=== PATIENT | female | born 1985 | race Two or more races ===

== ENCOUNTER 2024-09-04 11:54 | Emergency (ER) | payer MEDICAID, SELFPAY ==
[2024-09-04 11:55] VITALS: BMI 30.2
[2024-09-04 11:59] VITALS: BP 131/85; PULSE 64; RESP 17; TEMP 36.8; O2SAT 99
[2024-09-04] MEDS: KETOROLAC INJ 30 MG/ML VIAL IM (12:12)
[2024-09-04] MEDS: ONDANSETRON ODT 4 MG TABRAP PO (12:12)
[2024-09-04 12:36] LABS: Basophils % (Auto) 0 % (0-2.5); Eosinophils % (Auto) 0 % (0-10); Hemoglobin 10.3 g/dL (12.0-16.0); Immature Granulocytes % (Auto) 0 % (0-0); Immature Granulocytes Auto 0.05 Thou/mm3 (0.00-0.00); Lymphocytes # (Auto) 1.9 Thou/mm3 (1.0-4.8); Lymphocytes % (Auto) 15 % (10-50); Mean Corpuscular HGB Conc 33.2 g/dl (31.0-37.0); Mean Corpuscular Hemoglobin 27.6 pg (25.0-35.0); Mean Corpuscular Volume 83 fL (80-100); Monocytes # (Auto) 0.8 Thou/mm3 (0.0-0.8); Monocytes % (Auto) 6 % (0-12); Neutrophils # (Auto) 9.7 Thou/mm3 (1.8-7.7); Neutrophils % (Auto) 78 % (37-80); Nucleated Red Blood Cell % 0 /100 WBC (0); Platelet Count 256 Thou/mm3 (140-440); RDW Standard Deviation 47.5 fL (36.4-46.3); Red Blood Count 3.73 Miln/mm3 (4.00-5.20); White Blood Count 12.5 Thou/mm3 (3.6-11.0)
[2024-09-04 12:54] LABS: Collection Type, Urine Clean Catch
[2024-09-04 13:03] LABS: Alanine Aminotransferase 8 U/L (10-49); Albumin, Serum 3.9 gm/dL (3.5-5.0); Albumin/Globulin Ratio 1.6 (1.2-2.2); Alkaline Phosphatase 78 U/L (46-116); Anion Gap 10 (7-16); Aspartate Amino Transferase 13 U/L (0-34); BUN/Creatinine Ratio 11 Ratio (12-20); Bilirubin,Total 0.5 mg/dL (0.3-1.2); Blood Urea Nitrogen 12 mg/dL (9-23); Calcium 8.5 mg/dL (8.3-10.6); Calcium (Corrected) 8.6 mg/dL (8.5-10.1); Carbon Dioxide 21.3 mMol/L (20.0-31.0); Chloride 111 mMol/L (98-107); Creatinine (Component) 1.1 mg/dL (0.6-1.3); Estimated Creatinine Clearance 61.3 mL/min (>60); Globulin 2.5 gm/dL (2.3-3.5); Glucose 100 mg/dL (74-106); Lipase 41 U/L (12-53); Osmolality,Calculated 282 (275-295); Potassium 3.9 mMol/L (3.4-5.1); Sodium 142 mMol/L (136-145); Total Protein 6.4 gm/dL (5.7-8.2); eGFR > 60 See Note
[2024-09-04 13:05] LABS: Bilirubin,Urine Negative (Negative); Blood,Urine 1+ (Negative); Budding Yeast,Urine Present; Color,Urine Lt-Yellow (Lt Yel-Yel); Glucose, Urine Negative (Negative); Ketones,Urine Negative (Negative); Leukocyte Esterase,Urine Positive (Negative); Nitrite,Urine Negative (Negative); PH,Urine 6.5 (5.0-7.0); Protein,Urine Trace (Neg - Trace); RBC,Urine 8 /hpf (0-3); Specific Gravity,Urine 1.017 (1.001-1.035); Squamous Epithelial Cell,Urine 1 /hpf (0-5); Urobilinogen,Urine Negative mg/dL (0.0-1.0); WBC,Urine 85 /hpf (0-5)
[2024-09-04 13:07] LABS: HCG Qualitative,Urine Negative
[2024-09-04 13:14] LABS: Clarity,Urine Hazy (Clear/Hazy); Culture Indicated,Urine Yes
[2024-09-04 14:36] VITALS: BP 148/85; PULSE 73; RESP 18; TEMP 36.6; O2SAT 100
--- NOTE | 2024-09-04 14:50 | EDNOTE_ITS ---
ED Abdominal Pain RME/HPI General Chief Complaint: Abdominal Pain Stated complaint: C/O FLANK/LOWER ABD PAIN; HX OF KIDNEY STONES Time seen by provider: 09/04/24 12:06 Arrival date/time: 09/04/24 11:54 39-year-old female presents to the emergency department day for complaints of lower abdominal pain and flank pain patient for symptoms ongoing since this morning. Patient reports no fever nausea or vomiting Limitations: no limitations Related Data Previous Rx's ?Medication ?Instructions ?Recorded diazepam 10 mg tablet (Valium) 10 mg PO BID PRN muscle spasm #14 09/19/20 tabs naproxen 500 mg tablet (Naprosyn) 500 mg PO BID PRN pa in #30 tabs 09/19/20 albuterol sulfate 90 mcg/actuation 2 puff inhalation Q 6H PRN 03/22/23 aerosol inhaler (Ventolin HFA) shortness of breath or wheezing #8.5 grams benzonatate 100 mg capsule 100 mg PO TID #14 caps 04/14 ciprofloxacin HCl 500 mg tablet 500 mg PO BID #14 tabs 06/13/23 (Cipro) meloxicam 7.5 mg tablet 7.5 mg PO QDAY #14 tabs 05/21 07/13 ciprofloxacin HCl 500 mg tablet 500 mg PO BID 7 days # 14 tabs 09/04/24 ibuprofen 600 mg tablet 600 mg PO Q6H #30 tabs 09/04 Allergies Allergy/AdvReac Type Severity Reaction Status Date / Time No Known Allergies Allergy Verified 09/04/24 11:57 Review of Systems Review of Systems Systems Reviewed: All systems reviewed, normal except as documented Constitutional Constitutional: Reports system reviewed and no additional complaints, except as documented, Denies fever(s) and Denies headache(s) Eyes Eyes: Reports system reviewed and no additional complaints, except as documented and Denies blurry vision ENT Ears, Nose, Mouth, and Throat: Reports system reviewed and no additional complaints, except as documented, Denies headache(s), Denies nasal congestion and Denies nasal discharge Cardiovascular Cardiovascular: Reports system reviewed and no additional complaints, except as documented, Denies chest pain and Denies dyspnea Respiratory Respiratory: Reports system reviewed and no additional complaints, except as documented, Denies chest congestion, Denies cough and Denies dyspnea Gastrointestinal Gastrointestinal: Reports system reviewed and no additional complaints, except as documented and Reports abdominal pain Integumentary/Breasts Skin/Breast: Reports system reviewed and no additional complaints, except as documented and Denies rash Neurologic Neurologic: Reports system reviewed and no additional complaints, except as documented, Reports as per HPI and Denies headache(s) Past Medical History Past Medical History CARDIAC: Negative Cardiac Disorders or Congestive Heart Failure RESPIRATORY: Negative Chronic Obstructive Pulmonary Disease (COPD) or Asthma GENITOURINARY: Negative Renal Disease ENDOCRINE: Negative Diabetes Mellitus Type 1 or Diabetes Mellitus Type 2 HEMATOLOGIC: Negative Sickle Cell Disease Social History SMOKING STATUS: Never smoker SUBSTANCE USE: does not use ED Exam General Limitations: Present no limitations General appearance: Present alert and in no apparent distress Head Head exam: Present atraumatic Eye Eye exam: Present normal appearance, PERRL and EOMI ENT ENT exam: Present normal exam, normal oropharynx and mucous membranes moist Neck Neck exam: Present normal inspection, full ROM and trachea midline Chest Chest inspection: Present normal inspection and symmetric chest wall rise Respiratory Respiratory exam: Present normal lung sounds bilaterally Cardiovascular Cardiovascular exam: Present regular rate, normal rhythm and normal heart sounds Abdominal Exam Abdominal exam: Present soft and normal bowel sounds; Absent distention, tenderness, guarding, rebound, rigidity, Martines's sign or tenderness at McBurney's Point Extremities Exam Extremities exam: Present normal inspection and full ROM Back Exam Back exam: Present normal inspection and full ROM Neurological Exam Neurological exam: Present alert, oriented X3 and CN II-XII intact Psychiatric Psychiatric exam: Present normal affect and normal mood Skin Skin exam: Present warm, dry, intact and normal color Course Quality Measures none Orders Category Date Time Status CBC Stat Lab 09/04/24 12:27 Completed Comprehensive Metabolic Panel Stat Lab 09/04/24 12:27 Completed HCG Qualitative,Urine Stat Lab 09/04/24 12:30 Completed Lipase Stat Lab 09/04/24 12:27 Completed UA, C/S IF [Urinalysis, C/S if Indicated] Stat Lab 09/04/24 12:30 Completed Urine Culture Stat Lab 09/04/24 12:30 Received Fluconazole [Diflucan] Med 09/04/24 14:50 Discontinued 150 mg PO X1 ONE Ketorolac Inj [Toradol Inj] Med 09/04/24 12:06 Discontinued 30 mg IM X1 ONE Lidocaine 1% 20 ml [Xylocaine 1% 20 ML] Med 09/04/24 14:50 Discontinued 2.1 ml INFL X1 ONE Ondansetron Odt [Zofran Odt] Med 09/04/24 12:06 Discontinued 4 mg PO X1 ONE cefTRIAXone [Rocephin] Med 09/04/24 14:50 Discontinued 1,000 mg IM X1 ONE Vital Signs Vital signs: Vital Signs Temperature 98.3 F 09/04/24 11:59 Pulse Rate 64 09/04/24 11:59 Respiratory Rate 17 09/04/24 11:59 Blood Pressure 131/85 H 09/04/24 11:59 Pulse Oximetry (%) 99 09/04/24 11:59 Oxygen Delivery Method Room Air 09/04/24 11:59 O2 saturation 99% room air within normal limits Abdominal Pain MDM MDM Narrative MDM Narrative:: 39-year-old female presents to the emergency department day for complaints of lower abdominal pain and flank pain patient for symptoms ongoing since this morning. Patient reports no fever nausea or vomiting On exam patient well-appearing patient does not appear ill or toxic no acute distress Lab work and imaging obtained no acute emergent findings noted Urinalysis consistent with UTI patient given Rocephin Patient discharged home in no distress to follow-up with primary care doctor in the next 24 to 48 hours and for any worsening symptoms to return to the ER immediately Patient data External records reviewed:: [facility] previous records Clinical information provided by:: patient Social determinants that could affect healthcare access:: none Patient has the following chronic illnesses:: None How is presenting disease/condition affected by chronic disease/condition?: no chronic disease Evaluation data The following diagnostics were reviewed and interpreted by me:: lab results Lab and/or radiology exams considered but not ordered:: Labs obtained Interpretation Summary: Reviewed by me Medications / Prescriptions Medications or Prescriptions considered but not ordered:: reviewed Medication administrations:: Medication Administration History Discontinued Medications Ceftriaxone Sodium (Ceftriaxone Sod Inj 1,000 Mg Vial) 1,000 mg IM X1 ONE Stop: 09/04/24 14:51 Last Admin: 09/04/24 15:06 Dose: 1,000 mg Documented By: MACKENZIE Fluconazole (Fluconazole 150 Mg Tablet) 150 mg PO X1 ONE Stop: 09/04/24 14:51 Last Admin: 09/04/24 15:07 Dose: 150 mg Documented By: MACKENZIE Ketorolac Tromethamine (Ketorolac Inj 30 Mg/Ml Vial) 30 mg IM X1 ONE Stop: 09/04/24 12:07 Last Admin: 09/04/24 12:12 Dose: 30 mg Documented By: CHARLEEN Lidocaine HCl (Lidocaine Hcl 1% 20 Ml Vial) 2.1 ml INFL X1 ONE Stop: 09/04/24 14:51 Last Admin: 09/04/24 15:07 Dose: 2.1 ml Documented By: MACKENZIE Ondansetron HCl (Ondansetron Odt 4 Mg Tabrap) 4 mg PO X1 ONE; Protocol Stop: 09/04/24 12:07 Last Admin: 09/04/24 12:12 Dose: 4 mg Documented By: CHARLEEN Given Consultations Consultation(s) initiated? (list below): No Diagnosis Differential diagnosis abdominal pain: abdominal pain, calculus of kidney, constipation, diverticulitis and other (Abdominal pain) Most likely diagnosis given after review of the tests above:: Abdominal pain Admission Indicated Admission indicated?: not indicated Admission Request Was there a request for admission?: No Disposition Plan Disposition Plan: Discharge Discharge Attestation Discharge Attestation: The patient and all family members were given an opportunity to ask questions and understood the discharge instructions. Discharge instructions specifically effects, indications for sooner follow up or return to the emergency department, and the expected course of current diagnosis. Patient condition: Stable Discharge Plan Plan Patient Disposition: HOME (Self Care) Discharge Disposition comment: Stable Prescriptions/Referrals Prescriptions/Med Rec: New ciprofloxacin HCl 500 mg tablet 500 mg PO BID 7 Days Qty: 14 0RF ibuprofen 600 mg tablet 600 mg PO Q6H Qty: 30 0RF No Action diazepam [Valium] 10 mg tablet 10 mg PO BID PRN (Reason: muscle spasm) Qty: 14 0RF naproxen [Naprosyn] 500 mg tablet 500 mg PO BID PRN (Reason: pain) Qty: 30 0RF ciprofloxacin HCl [Cipro] 500 mg tablet 500 mg PO BID Qty: 14 0RF meloxicam 7.5 mg tablet 7.5 mg PO QDAY Qty: 14 0RF benzonatate 100 mg capsule 100 mg PO TID Qty: 14 0RF albuterol sulfate [Ventolin HFA] 90 mcg/actuation HFA aerosol inhaler 2 puff inhalation Q6H PRN (Reason: shortness of breath or wheezing) Qty: 8.5 0RF Referrals: No Primary/Family,Physician [Primary Care Provider] - 09/06/24 Problem List Clinical Impression: UTI (urinary tract infection), Candidiasis of vagina Patient/Caregiver Discharge Instructions Education Materials: Candidiasis Vaginal Additional Instructions: Please follow up with your primary care doctor in the next 24-48hrs for any worsening symptoms return here immediately Print Language: Hong Konger Stand Alone Forms: Elena Award Info., Patient Portal Info Letter PA/PAINTINGS CONSERVATOR Supervising Physician PA/PAINTINGS CONSERVATOR Supervising Physician: Dr fuentes
[2024-09-04] MEDS: cefTRIAXone SOD INJ 1,000 MG VIAL 1000 MG IM (15:06)
[2024-09-04] MEDS: LIDOCAINE HCL 1% 20 ML VIAL 2.1 ML INFL (15:07)
[2024-09-04] MEDS: FLUCONAZOLE 150 MG TABLET PO (15:07)
--- NOTE | 2024-09-06 15:57 | PC.NURSE ---
UA CX WITH +ECOLI, NEW RX SENT BY LAST TO PREFERRED PHARMACY, THIS TELECOMMUNICATIONS LINESWORKER CALLED TO INFORM OF SUCH.
== END 2024-09-04 15:17 | disposition home or self-care (01) ==
PROVIDERS: Nurse Practitioner Primary Care; Emergency Provider Family Medicine
DX: N39.0 Urinary tract infection, site not specified (principal); B37.31 Acute candidiasis of vulva and vagina
CPT/HCPCS: 36415; 80053; 81001; 81025; 83690; 85025; 87077; 87086; 87186; 96372; 99283; J0696; J1885; J3490; Q0162; A9270

== ENCOUNTER 2025-01-05 02:33 | Emergency (ER) | payer MEDICAID, SELFPAY ==
[2025-01-05 02:34] VITALS: BP 126/82; PULSE 63; RESP 18; TEMP 36.6; O2SAT 100; BMI 29.2
--- NOTE | 2025-01-05 03:03 | PD.EDRME ---
Rapid Medical Screening Exam [facility] Arrival date/time: 01/05/25 02:33 39F with history of alcohol/drug use and gastric bypass surgery (hasn't been taking vitamins) presents to ED with generalized muscle cramping and N/V. Patient drank a little yesterday. Chief Complaint: General Adult/Misc Complain Vital signs: Vital Signs Temperature 97.8 F 01/05/25 02:34 Pulse Rate 63 01/05/25 02:34 Respiratory Rate 18 01/05/25 02:34 Blood Pressure 126/82 01/05/25 02:34 Pulse Oximetry (%) 100 01/05/25 02:34 Oxygen Delivery Method Room Air 01/05/25 02:34
[2025-01-05 03:27] LABS: Basophils # (Auto) 0.0 Thou/mm3 (0.0-0.2); Basophils % (Auto) 0 % (0-2.5); Eosinophils # (Auto) 0.0 Thou/mm3 (0.0-0.5); Eosinophils % (Auto) 0 % (0-10); Hematocrit 32.8 % (36.0-46.0); Hemoglobin 10.2 g/dL (12.0-16.0); Immature Granulocytes Auto 0.02 Thou/mm3 (0.00-0.00); Lymphocytes # (Auto) 1.9 Thou/mm3 (1.0-4.8); Lymphocytes % (Auto) 27 % (10-50); Mean Corpuscular HGB Conc 31.1 g/dl (31.0-37.0); Mean Corpuscular Hemoglobin 26.0 pg (25.0-35.0); Mean Corpuscular Volume 84 fL (80-100); Monocytes # (Auto) 0.8 Thou/mm3 (0.0-0.8); Monocytes % (Auto) 11 % (0-12); Neutrophils # (Auto) 4.2 Thou/mm3 (1.8-7.7); Neutrophils % (Auto) 61 % (37-80); Nucleated Red Blood Cell # 0.00 Thou/mm3 (0.00-0.00); Nucleated Red Blood Cell % 0 /100 WBC (0); Platelet Count 279 Thou/mm3 (140-440); RDW Standard Deviation 52.1 fL (36.4-46.3); Red Blood Count 3.92 Miln/mm3 (4.00-5.20); White Blood Count 6.9 Thou/mm3 (3.6-11.0)
[2025-01-05 03:38] LABS: Alanine Aminotransferase 28 U/L (10-49); Albumin, Serum 4.3 gm/dL (3.5-5.0); Albumin/Globulin Ratio 1.6 (1.2-2.2); Alcohol, Blood Medical < 3.0 mg/dL (0-10.0); Alkaline Phosphatase 106 U/L (46-116); Anion Gap 9 (7-16); Aspartate Amino Transferase 41 U/L (0-34); BUN/Creatinine Ratio 14 Ratio (12-20); Bilirubin,Total 0.2 mg/dL (0.3-1.2); Blood Urea Nitrogen 15 mg/dL (9-23); Calcium 8.5 mg/dL (8.3-10.6); Calcium (Corrected) 8.5 mg/dL (8.5-10.1); Carbon Dioxide 22.4 mMol/L (20.0-31.0); Chloride 109 mMol/L (98-107); Creatinine (Component) 1.1 mg/dL (0.6-1.3); Estimated Creatinine Clearance 60.4 mL/min (>60); Globulin 2.7 gm/dL (2.3-3.5); Glucose 95 mg/dL (74-106); Magnesium 1.9 mg/dL (1.6-2.6); Osmolality,Calculated 280 (275-295); Potassium 5.0 mMol/L (3.4-5.1); Sodium 140 mMol/L (136-145); Total Protein 7.0 gm/dL (5.7-8.2); eGFR > 60 See Note
== END 2025-01-05 04:11 | disposition left against medical advice (07) ==
LOC: SERX 03:30
PROVIDERS: Physician Assistant; Emergency Provider Emergency Medicine
DX: Z53.21 Procedure and treatment not carried out due to patient leaving prior to being seen by health care provider (principal)
CPT/HCPCS: 36415; 80053; 80307; 80320; 81001; 81025; 83735; 85025; 99283; G0480

== ENCOUNTER 2025-01-13 09:19 | Emergency (ER) | payer MEDICAID, SELFPAY ==
[2025-01-13 09:25] VITALS: BP 115/76; PULSE 58; RESP 16; TEMP 36.7; O2SAT 98; BMI 29.2
--- NOTE | 2025-01-13 09:31 | XR_ITS ---
Examination: CT abdomen and pelvis without contrast. Coronal 3-D reconstructions. Sagittal 2-D reconstructions. Date and time of exam: January 13, 2025, 11:18 a.m., comparison May 10, 2023 INDICATIONS: Right lower back pain and abdomen pain today, history of kidney stones CTDI: vol (mGy): 9 DLP: (mGycm): 445 Technique: Axial images of the abdomen have been obtained, 3 mm slice thickness Intravenous contrast material has not been administered. Low dose protocols were performed. One or more of the following dose reduction techniques were used; automated exposure control, adjustment of the mA and/or KV according to patient size, use of iterative reconstruction technique. Findings: No focal liver or splenic lesions Absent gallbladder No pancreatic or adrenal mass Bilateral 1 to 2 mm renal calculi Moderate renal scar formation No hydronephrosis or ureteral calculi Normal appendix No bowel obstruction No diverticulitis Anteverted uterus, no adnexal or uterine mass Mild urinary bladder wall thickening up to 5 mm Intact osseous structures IMPRESSION: Tiny bilateral nonobstructing renal calculi Moderate bilateral renal scar formation No hydronephrosis or ureteral calculi Normal appendix Mild urinary bladder wall thickening, consider cystitis
--- NOTE | 2025-01-13 09:31 | PD.EDRME ---
Rapid Medical Screening Exam [facility]ME Arrival date/time: 01/13/25 09:19 39-year-old female with medical history significant for gastric bypass, cholecystectomy, kidney stones presents for complaints of right flank pain Chief Complaint: Urogenital-Female Vital signs: Vital Signs Temperature 98.1 F 01/13/25 09:25 Pulse Rate 58 L 01/13/25 09:25 Respiratory Rate 16 01/13/25 09:25 Blood Pressure 115/76 01/13/25 09:25 Pulse Oximetry (%) 98 01/13/25 09:25 Oxygen Delivery Method Room Air 01/13/25 09:25 Vital signs reviewed by provider: Yes Exam: On exam patient is tenderness right flank Cardiac: Heart sounds normal Respiratory: Lung sounds normal Clinical Impression: Appropriate lab work and imaging ordered
[2025-01-13 09:53] LABS: Basophils # (Auto) 0.0 Thou/mm3 (0.0-0.2); Basophils % (Auto) 0 % (0-2.5); Eosinophils # (Auto) 0.0 Thou/mm3 (0.0-0.5); Eosinophils % (Auto) 1 % (0-10); Hematocrit 33.2 % (36.0-46.0); Hemoglobin 10.3 g/dL (12.0-16.0); Immature Granulocytes Auto 0.01 Thou/mm3 (0.00-0.00); Lymphocytes # (Auto) 2.1 Thou/mm3 (1.0-4.8); Lymphocytes % (Auto) 35 % (10-50); Mean Corpuscular HGB Conc 31.0 g/dl (31.0-37.0); Mean Corpuscular Hemoglobin 26.5 pg (25.0-35.0); Mean Corpuscular Volume 85 fL (80-100); Monocytes # (Auto) 0.5 Thou/mm3 (0.0-0.8); Monocytes % (Auto) 9 % (0-12); Neutrophils # (Auto) 3.2 Thou/mm3 (1.8-7.7); Neutrophils % (Auto) 55 % (37-80); Nucleated Red Blood Cell # 0.00 Thou/mm3 (0.00-0.00); Nucleated Red Blood Cell % 0 /100 WBC (0); Platelet Count 219 Thou/mm3 (140-440); RDW Standard Deviation 54.0 fL (36.4-46.3); Red Blood Count 3.89 Miln/mm3 (4.00-5.20); White Blood Count 5.9 Thou/mm3 (3.6-11.0)
[2025-01-13 10:05] LABS: Alanine Aminotransferase 20 U/L (10-49); Albumin, Serum 4.3 gm/dL (3.5-5.0); Albumin/Globulin Ratio 2.0 (1.2-2.2); Alkaline Phosphatase 94 U/L (46-116); Anion Gap 8 (7-16); Aspartate Amino Transferase 24 U/L (0-34); BUN/Creatinine Ratio 12 Ratio (12-20); Bilirubin,Total 0.5 mg/dL (0.3-1.2); Blood Urea Nitrogen 12 mg/dL (9-23); Calcium 8.7 mg/dL (8.3-10.6); Calcium (Corrected) 8.7 mg/dL (8.5-10.1); Carbon Dioxide 23.9 mMol/L (20.0-31.0); Chloride 112 mMol/L (98-107); Creatinine (Component) 1.0 mg/dL (0.6-1.3); Estimated Creatinine Clearance 66.4 mL/min (>60); Globulin 2.2 gm/dL (2.3-3.5); Glucose 91 mg/dL (74-106); Lipase 50 U/L (12-53); Osmolality,Calculated 286 (275-295); Potassium 3.8 mMol/L (3.4-5.1); Sodium 144 mMol/L (136-145); Total Protein 6.5 gm/dL (5.7-8.2); eGFR > 60 See Note
[2025-01-13 10:06] LABS: Collection Type, Urine Clean Catch
[2025-01-13 10:43] LABS: HCG Qualitative,Urine Negative
[2025-01-13 10:46] LABS: Bilirubin,Urine Negative (Negative); Blood,Urine Trace (Negative); Clarity,Urine Clear (Clear/Hazy); Color,Urine Lt-Yellow (Lt Yel-Yel); Culture Indicated,Urine Not Indicated; Glucose, Urine Negative (Negative); Ketones,Urine Negative (Negative); Leukocyte Esterase,Urine Negative (Negative); Nitrite,Urine Negative (Negative); PH,Urine 6.0 (5.0-7.0); Protein,Urine Negative (Neg - Trace); RBC,Urine 1 /hpf (0-3); Specific Gravity,Urine 1.019 (1.001-1.035); Squamous Epithelial Cell,Urine 1 /hpf (0-5); Urobilinogen,Urine Negative mg/dL (0.0-1.0); WBC,Urine 2 /hpf (0-5)
[2025-01-13 10:52] VITALS: BP 126/62; PULSE 51; RESP 15; TEMP 36.8; O2SAT 100
--- NOTE | 2025-01-13 11:16 | EDNOTE_ITS ---
<Statement entered by Demi Henry MD - 01/13/25 17:58> As co-signing physician, I was present and available for consult prn. I concur with the plan and care as documented by the midlevel provider. ED General RME/HPI General Chief complaint: Urogenital-Female Stated complaint: RIGHT SIDED FLANK PAIN, NAUSEA, HEADACHE Time Seen by Provider: 01/13/25 11:14 Arrival date/time: 01/13/25 09:19 CC: Right flank pain HPI onset 1 week ago worse in the last 24 hours. No prior history of similar events and states the pain radiates from the mid back around to the upper ribs. No prior history of similar events denies diarrhea intermittent nausea but no vomiting. Denies fever shortness of breath or chest pain. RME / HPI RME / HPI narrative: 01/13/25 09:19 39-year-old female with medical history significant for gastric bypass, cholecystectomy, kidney stones presents for complaints of right flank pain Exam: On exam patient is tenderness right flank Cardiac: Heart sounds normal Respiratory: Lung sounds normal Impression: Appropriate lab work and imaging ordered Related Data Previous Rx's ?Medication ?Instructions ?Recorded diazepam 10 mg tablet (Valium) 10 mg PO BID PRN muscle spasm #14 09/19/20 tabs naproxen 500 mg tablet (Naprosyn) 500 mg PO BID PRN pa in #30 tabs 09/19/20 albuterol sulfate 90 mcg/actuation 2 puff inhalation Q 6H PRN 03/22/23 aerosol inhaler (Ventolin HFA) shortness of breath or wheezing #8.5 grams benzonatate 100 mg capsule 100 mg PO TID #14 caps 04/14 ciprofloxacin HCl 500 mg tablet 500 mg PO BID #14 tabs 06/13/23 (Cipro) meloxicam 7.5 mg tablet 7.5 mg PO QDAY #14 tabs 05/21 07/13 ibuprofen 600 mg tablet 600 mg PO Q6H #30 tabs 09/04 meloxicam 7.5 mg tablet 7.5 mg PO QDAY #10 tabs 12/21 08/13 Allergies Allergy/AdvReac Type Severity Reaction Status Date / Time No Known Allergies Allergy Verified 09/04/24 11:57 Review of Systems Review of Systems Narrative Review of Systems: GEN: No fever, no chills, no weight loss EYES: No discharge, no visual changes, no pain HEENT: No ear pain, no congestion, no sore throat PULM: No shortness of breath, no cough, no congestion CV: No chest pain, no dyspnea on exertion, no palpitations GI: No nausea, no vomiting, no diarrhea, no pain, no constipation : No frequency, no urgency, no dysuria MUSC/SKEL: No joint pain, +flank pain SKIN: No rash PSYCH: No hallucinations, no depression HEME/LYMPH: No easy bleeding or bruising tendencies NEURO: No weakness, no headache Past Medical History Past Medical History CARDIAC: Negative Cardiac Disorders or Congestive Heart Failure RESPIRATORY: Negative Chronic Obstructive Pulmonary Disease (COPD) or Asthma GENITOURINARY: Negative Renal Disease ENDOCRINE: Negative Diabetes Mellitus Type 1 or Diabetes Mellitus Type 2 HEMATOLOGIC: Negative Sickle Cell Disease Social History SMOKING STATUS: Never smoker SUBSTANCE USE: does not use ED Exam Narrative Physical exam: [General: Not in any acute distress Head normocephalic HEENT: Within acceptable limits Neck is supple nontender Chest equal chest rise nontender to palpation Respiratory: Clear to auscultation no wheezes crackles or rubs CV: Rate rhythm is regular no murmurs rubs or clicks Abdomen is soft nontender no masses positive bowel sounds all 4 quadrants Back: No CVA tenderness no spinous process tenderness from cervical spine thoracic and lumbar spine Skin: Intact no petechiae rash induration ulceration or crepitus Extremities: Moving all extremity against resistance cap refill less than 2 seconds neurosensory intact Neuro: Awake alert oriented x3 Glascow coma 15 no focal deficits] Course Course Course Narrative: Reassessment of this patient at 1217 she is not in any acute distress heart rate is stable along with blood pressure, there are no acute findings that require emergent or immediate intervention patient will be discharged home with flank pain. Quality Measures none Orders Category Date Time Status CT abdomen pelvis wo con Stat Exams 01/13/25 09:31 Completed CBC Stat Lab 01/13/25 09:40 Completed Comprehensive Metabolic Panel Stat Lab 01/13/25 09:40 Completed HCG Qualitative,Urine Stat Lab 01/13/25 09:55 Completed Lipase Stat Lab 01/13/25 09:40 Completed UA, C/S IF [Urinalysis, C/S if Indicated] Stat Lab 01/13/25 09:55 Completed Vital Signs Vital signs: Vital Signs Temperature 98.1 F 01/13/25 09:25 Pulse Rate 58 L 01/13/25 09:25 Respiratory Rate 16 01/13/25 09:25 Blood Pressure 115/76 01/13/25 09:25 Pulse Oximetry (%) 98 01/13/25 09:25 Oxygen Delivery Method Room Air 01/13/25 09:25 Discharge Plan Plan Patient Disposition: HOME (Self Care) Patient condition on transfer: Stable Prescriptions/Referrals Prescriptions/Med Rec: New meloxicam 7.5 mg tablet 7.5 mg PO QDAY Qty: 10 0RF No Action diazepam [Valium] 10 mg tablet 10 mg PO BID PRN (Reason: muscle spasm) Qty: 14 0RF naproxen [Naprosyn] 500 mg tablet 500 mg PO BID PRN (Reason: pain) Qty: 30 0RF ciprofloxacin HCl [Cipro] 500 mg tablet 500 mg PO BID Qty: 14 0RF meloxicam 7.5 mg tablet 7.5 mg PO QDAY Qty: 14 0RF ibuprofen 600 mg tablet 600 mg PO Q6H Qty: 30 0RF benzonatate 100 mg capsule 100 mg PO TID Qty: 14 0RF albuterol sulfate [Ventolin HFA] 90 mcg/actuation HFA aerosol inhaler 2 puff inhalation Q6H PRN (Reason: shortness of breath or wheezing) Qty: 8.5 0RF Referrals: Dasia Sierra PA-C [Primary Care Provider] - In 1 week Problem List Clinical Impression: Flank pain Patient/Caregiver Discharge Instructions Education Materials: Abdominal Pain Additional Instructions: Take the medication as needed for temporary pain relief if there is worsening of symptoms return the emergency room immediately for further evaluation. Print Language: Kinyarwanda Stand Alone Forms: Elena Award Info., Patient Portal Info Letter, Work/School Release PA/SOLAR PROJECT COORDINATION SPECIALIST Supervising Physician PA/SOLAR PROJECT COORDINATION SPECIALIST Supervising Physician: Chandrakant Armas ENP [facility] Clinical Information Provided by: patient Medical Records reviewed [facility] Labs/Rad/Tests considered, not ordered None Chronic Illness/Social Conditions which may negatively complicate care or outcome(s)-explain: None or not applicable EKG EKG not done Labs Labs: interpreted by nd Lab(s) Interpretation(s): CBC shows a stable anemia no thrombocytopenia no leukocytosis. CMP shows no significant electrolyte imbalances renal impairment transaminitis or T. bili elevation Urine is unremarkable
[2025-01-13 12:00] VITALS: BP 115/72; PULSE 59; RESP 21; TEMP 36.7; O2SAT 99
[2025-01-13 12:30] VITALS: BP 115/72; PULSE 59; RESP 16; TEMP 36.7; O2SAT 99
== END 2025-01-13 12:33 | disposition home or self-care (01) ==
PROVIDERS: Nurse Practitioner Primary Care; Emergency Provider Emergency Medicine; PCP Physician Assistant Medical
DX: R10.A1 Flank pain, right side (principal)
CPT/HCPCS: 36415; 74176; 80053; 81001; 81025; 83690; 85025; 99282